=== PATIENT | female | born 1950 | race Caucasian/White ===

== ENCOUNTER → 2024-05-01 14:23 | Outpatient (REF) | payer OTHER, SELFPAY | LOC: WDC 14:23 | PROVIDERS: ATTENDING PHYSICIAN Nurse Practitioner | DX: Z12.31 Encounter for screening mammogram for malignant neoplasm of breast (principal) | CPT/HCPCS: 77063; 77067 ==

== ENCOUNTER → 2024-05-27 09:46 | Outpatient (REF) | payer OTHER, SELFPAY | LOC: WDC 09:46 | PROVIDERS: ATTENDING PHYSICIAN Nurse Practitioner | DX: R92.8 Other abnormal and inconclusive findings on diagnostic imaging of breast (principal) | CPT/HCPCS: 76642 ==

== ENCOUNTER → 2024-06-05 08:35 | Outpatient (REF) | payer OTHER, SELFPAY ==
--- NOTE | 2024-06-08 08:37 | OID.BR.INTR ---
OID Breast Navigator - Initial
- -
Did not meet patient at time of biopsy. Will follow up per protocol.
== END ==
LOC: WDC 08:35
PROVIDERS: ATTENDING PHYSICIAN Nurse Practitioner
DX: N63.23 Unspecified lump in the left breast, lower outer quadrant (principal)
CPT/HCPCS: 88305; 19083; A4648

== ENCOUNTER → 2024-07-03 13:32 | Outpatient (REF) | payer OTHER, SELFPAY | LOC: MRI 3T 13:32 | PROVIDERS: ATTENDING PHYSICIAN Surgery; FAMILY PHYSICIAN Nurse Practitioner | DX: C50.412 Malignant neoplasm of upper-outer quadrant of left female breast (principal) | CPT/HCPCS: 77049; A9585 ==

== ENCOUNTER → 2024-07-13 08:15 | Outpatient (REF) | payer OTHER, SELFPAY | LOC: WDC 08:15 | PROVIDERS: ATTENDING PHYSICIAN Surgery | DX: C50.412 Malignant neoplasm of upper-outer quadrant of left female breast (principal) | CPT/HCPCS: 19285; 38792; 76942; A4648; A9541 ==

== ENCOUNTER 2024-07-14 06:17 | Day surgery (SDC) | payer OTHER, SELFPAY ==
[2024-07-13 11:24] LABS: Hematocrit 46.1 % (37.0-47.0); Hemoglobin 15.1 g/dL (12.0-16.0); Mean Corp Hgb Conc. 32.8 g/dL (33.0-37.0); Mean Corpuscular Hgb 26.9 pg (27.0-31.0); Mean Corpuscular Volume 82.2 fL (81.0-99.0); Mean Platelet Volume 10.8 fL (7.4-10.4); Platelet Count 279 10^3/uL (130-400); Red Blood Cell Count 5.61 10^6/uL (4.20-5.40); Red Cell Dist. Width 15.3 % (11.5-14.5); White Blood Cell Count 16.8 10^3/uL (4.8-10.8)
[2024-07-13 13:45] LABS: ALT (SGPT) 32 U/L (0-35); AST (SGOT) 31 U/L (14-36); Albumin 4.4 g/dl (3.5-5.0); Alkaline Phosphatase 162 U/L (38-126); Blood Urea Nitrogen 13 mg/dl (7-17); Calcium 9.8 mg/dl (8.4-10.2); Carbon Dioxide 26 mmol/L (22-30); Chloride 105 mmol/L (98-107); Glucose 110 mg/dl (70-99); Potassium 4.3 mmol/L (3.5-5.1); Sodium 145 mmol/L (135-145); Total Protein 7.7 g/dl (6.3-8.2); eGFR > 60.00
[2024-07-13 14:02] LABS: Prealbumin (Transthyretin) 24.2 mg/dl (17.6-36.0)
--- NOTE | 2024-07-13 14:13 | PTCARENOTE ---
Abn Aftab DUARTE at Dr. Cleaning's office made aware.
[2024-07-13 14:15] LABS: Vitamin D, 25-OH*** 21.5 ng/mL (30-80)
[2024-07-13 14:18] VITALS: BMI 32.2
[2024-07-14 09:44] VITALS: BMI 32.2
[2024-07-14 09:56] VITALS: BMI 32.2
[2024-07-14 10:07] VITALS: BP 155/74
[2024-07-14] MEDS: LOVENOX 40 MG SC (10:34)
[2024-07-14] MEDS: NORMOSOL-R/PLASMALYTE-A 1000 IV (10:57)
[2024-07-14 13:10] VITALS: BP 136/66
[2024-07-14 13:15] VITALS: BP 138/66
[2024-07-14 13:30] VITALS: BP 128/63
--- NOTE | 2024-07-14 13:37 | W.IMMPOSTOP ---
Surgical Immed Post Op Note
-
Primary Surgeon: Hermila
Assisting Surgeon: None
Pre-op Diagnosis: Left breast ca
Post-op Diagnosis: Left breast ca
Procedure Performed: Left localized lumpectomy, sentinel lymph node mapping and biopsy
Anesthesia Type: TIVA
Specimen / Cultures: Left lumpectomy, margins, sentinel nodes
Estimated Blood Loss: 10cc
Complications: None
Operative Findings: Clip and reflector in specimen; neg nodes on frozen section
--- NOTE | 2024-07-14 13:38 | OR.RPT ---
Addendum entered and electronically signed by Liza Cleaning MD 07/14/24 13:46:
Procedure performed with curative intent: Yes
Tracer used in erick-adjuvant setting: N/A
Tracer used in non neoadjuvant setting: Radioactive
All significantly radioactive lymph nodes removed: Yes
All nodes at end of blue dye channels removed: N/A
All suspicious palpable nodes removed: Yes
Positive lymph nodes prior to neoadjuvant chemotherapy clipped prior to
chemotherapy: N/A
Original Note:
Operative Report
Operative Report
Date of surgery: 07/14/24
Surgeon: Hermila
Anes: TIVA
Pre-Op DX: Left breast ca
Post-Op DX: Left breast ca
The patient is a 74-year-old female with image detected early stage left breast carcinoma who presents for breast conservation surgery. On the day prior to the procedure she presented to the breast imaging center where a [employer] district scout executive reflector was
placed at the tumor site and technetium radiotracer was injected into the breast parenchyma.
On the day of surgery she presented to the same-day surgical unit where she was prepped and verified site and procedure. DVT and antibiotic prophylaxis were provided and the patient was transferred to the operating room. In the supine position
intravenous sedation was delivered. The left breast and axilla were prepped and draped in usual sterile fashion. All staff members performed an appropriate timeout procedure.
All tissues were anesthetized with 1% lidocaine plain. Attention was first turned to the axilla where a curvilinear incision was made inferior to the hairline overlying the area of highest external gamma count. Dissection was carried through
clavipectoral fascia and 3 sentinel node packets were encountered and excised. Feeding vessels to the nodes were controlled with 3-0 silk tie. After the removal of these nodes there was a greater than 4 fold reduction of background count. Frozen
section analysis was negative. Hemostasis was verified. Marcaine 0.5% plain was instilled and the wound was closed using simple interrupted 3-0 plain on deep intermediate and subcutaneous tissue and skin was closed with a running subcuticular 4-0
Monocryl.
Then attention was turned to the lumpectomy where a curvilinear incision in the skin lines was made sharply. This overlying the area of highest Di signal. Skin flaps were elevated and dissection was carried down to the location of the tumor
using the cautery. Wide resection was performed. Time out of body was noted and the specimen was oriented for the pathologist. Specimen radiography confirmed the presence of clip mass and reflector within it. Additional margins were harvested
for permanent analysis from the posterior, medial, superior, lateral, inferior, and anterior dimensions. These were oriented as well.
Hemostasis was maintained. Marcaine 0.5% plain was instilled. Hemoclips were placed in the resection cavity. This wound was closed in the same fashion as the axilla. Surgical glue and sterile compressive dressings were applied. All sponge
needle and instrument counts were correct and the patient was transferred to the recovery room in stable condition
([id number])
[2024-07-14 13:45] VITALS: BP 131/69
== END 2024-07-14 14:25 | disposition home or self-care (01) ==
LOC: SDS 06:17
PROVIDERS: ATTENDING PHYSICIAN Surgery; FAMILY PHYSICIAN Nurse Practitioner
DX: D05.82 Other specified type of carcinoma in situ of left breast (principal); C50.912 Malignant neoplasm of unspecified site of left female breast
CPT/HCPCS: 38525; 19301; 38900; 88305; 88307; 88332; 36415; 76098; 80053; 82306; 84134; 85027; 88331; 88342; 93005; A4648

== ENCOUNTER 2024-07-25 17:40 | Day surgery (SDC) | payer OTHER, SELFPAY ==
[2024-07-25] VITALS (16 sets, daily range): BP systolic 10–159; BP diastolic 61–83; BMI 33.2
[2024-07-25 11:41] LABS: % Basophils 0.3 % (0-2); % Eosinophils 0.7 % (0-6); % Immature Granulocytes 0.6 % (0-0.5); % Lymphocytes 12.6 % (20.5-51.1); % Neutrophils 78.8 % (42.2-75.2); Absolute Basophils 0.1 10^3/uL (0-0.2); Absolute Eosinophils 0.1 10^3/uL (0-0.7); Absolute Immature Granulocytes 0.1 10^3/uL (0-0.05); Absolute Lymphocytes 2.1 10^3/uL (1.2-3.4); Absolute Monocytes 1.2 10^3/uL (0.1-0.6); Absolute Neutrophils 12.9 10^3/uL (1.4-6.5); Hematocrit 36.5 % (37.0-47.0); Hemoglobin 12.4 g/dL (12.0-16.0); Mean Corpuscular Volume 82.4 fL (81.0-99.0); Mean Platelet Volume 8.9 fL (7.4-10.4); Nucleated Red Blood Cells % 0 %; Platelet Count 396 10^3/uL (130-400); Red Blood Cell Count 4.43 10^6/uL (4.20-5.40); Red Cell Dist. Width 16.1 % (11.5-14.5); White Blood Cell Count 16.4 10^3/uL (4.8-10.8)
[2024-07-25 11:58] LABS: ALT (SGPT) 25 U/L (0-35); AST (SGOT) 24 U/L (14-36); Albumin 3.9 g/dl (3.5-5.0); Alkaline Phosphatase 161 U/L (38-126); Blood Urea Nitrogen 14 mg/dl (7-17); Calcium 9.6 mg/dl (8.4-10.2); Carbon Dioxide 26 mmol/L (22-30); Chloride 107 mmol/L (98-107); Glucose 116 mg/dl (70-99); Potassium 3.9 mmol/L (3.5-5.1); Sodium 141 mmol/L (135-145); Total Bilirubin 1.8 mg/dl (0.2-1.3); Total Protein 6.8 g/dl (6.3-8.2); eGFR > 60.00
--- NOTE | 2024-07-25 12:25 | ED.GENMED ---
History of Present Illness
General
Chief Complaint: Post Operative Problem(s)
Source: patient
Exam Limitations: none
Time Seen by Provider: 07/25/24 12:25
Nursing documentation reviewed up to this point in time: agreed with
History of Present Illness
History of Present Illness:
pt is a 74 y/o F
had lumpectomy on 07/[address] hinojosa
here with concerns for post op bleeding within the soft tissue
causing pain/swelling around the L breast wih bruising leaking into the lower tissue of the abdomen and LUE
sent in by dr. hinojosa with concerns that she would need to go to the OR for evacuation of the hematoma
no fever/chills
no cp, sob
no thinners
Review of Systems
Review of Systems
Allergies reviewed?: Yes
All Other Systems: Not applicable
Phy Exam
Physical Exam
Physical Exam:
GENERAL: Alert , in no apparent distress
EYE: pupils equal and reactive
NECK: Supple
CARDIAC: Regular rate and rhythm
LUNGS: Clear breath sounds bilaterally, no acute respiratory distress, no wheezes/rales/rhonchi
breast: incision site covered but large hematoma, firm, tender
NEUROLOGICAL: Alert and oriented, no focal neuro deficits
SKIN: Warm and dry, large hematoma firm superior to the breast with extension of the bruising into the abdomen/flank, and LUE
PSYCH: Normal and appropriate interaction.
Course
Orders/Labs/Results
Orders:
Orders
07/25/24 11:28
Complete Blood Count/With Diff Urgent
Comprehensive Metabolic Panel Urgent
07/25/24 12:36
Type+Screen Urgent
07/25/24 12:45
Normosol (Mult Electrolytes) [Normosol-R/Plasmalyte-A] 500 ml IV 100 mls/hr
07/25/24 13:00
CeFAZolin 2 GRAM [Ancef] 2 grams in 10 ml IV PRE PROCEDURE
Abnormal Lab Results
07/25/24
11:28
WBC 16.4 H 10^3/uL
(4.8-10.8)
Hct 36.5 L %
(37.0-47.0)
RDW 16.1 H %
(11.5-14.5)
Abs Immat Gran (auto) 0.1 H 10^3/uL
(0-0.05)
Absolute Neuts (auto) 12.9 H 10^3/uL
(1.4-6.5)
Absolute Monos (auto) 1.2 H 10^3/uL
(0.1-0.6)
Immature Gran % 0.6 H %
(0-0.5)
Neutrophils % 78.8 H %
(42.2-75.2)
Lymphocytes % 12.6 L %
(20.5-51.1)
Glucose 116 H mg/dl
(70-99)
Total Bilirubin 1.8 H mg/dl
(0.2-1.3)
Alkaline Phosphatase 161 H U/L
(38-126)
07/25/24 11:28
07/25/24 11:28
Vital Signs
Initial and Last Documented VS:
Initial Vital Signs
Temp Pulse Resp BP Pulse Ox
36.9 C 95 16 154/76 97
07/25/24 11:20 07/25/24 11:20 07/25/24 11:20 07/25/24 11:20 07/25/24 11:20
Last Documented Vital Signs
Temp Pulse Resp BP Pulse Ox
36.9 C 95 16 154/76 97
07/25/24 11:20 07/25/24 11:20 07/25/24 11:20 07/25/24 11:20 07/25/24 11:20
MDM/Problems Addressed
Differential Diagnosis Includes:
post operative hematoma; bleeding, anemia
MDM/Problems Addressed:
74 y/o F
post op lumpectomy with hematoma/pain
sent in by breast surgeon who examined pt in the ER and wants to admit to OR for evacuation
hg stable
no signs sepsis
*Critical Care Note
Total Time (30-74mins, 75-104mins- exclusive of procedures): Not Applicable
ED Attending Note
-
Portions of this chart may have been created with voice recognition software.� Occasional wrong word or��sound alike� substitutions may have occurred due to the inherent limitations of voice recognition software.
Discharge Plan
Departure
Patient Disposition: Admit
Date of Disposition: 07/25/24
Time of Disposition: 12:33
Admit to: OR
Admit to doctor: micaela
Presentation/result/management discussed w/ accepting MD/DO: micaela
Patient with high blood pressure during this ER visit?: No
Condition: Fair
Covid-19: Not Applicable
Discharge Problem:
Postoperative hematoma
Prescriptions:
No Action
atorvastatin 10 mg Tablet
10 mg PO QPM
famotidine [Pepcid] 40 mg Tablet
40 mg PO DAILY
fexofenadine [Omayra] 180 mg Tablet
180 mg PO 1330
nifedipine 60 mg Tablet Extended Release 24hr
60 mg PO DAILY
epinephrine [Epi E-Z Pen] 0.3 mg/0.3 mL Auto-Injector
0.3 mg IM ONCE PRN (Reason: allergic reaction)
Rx Instructions:
have never taken it
fluticasone propionate [Flonase] 50 mcg/actuation [place],Suspension
1 spray INTRANASAL HS
solifenacin 10 mg Tablet
10 mg PO QPM
Women's Multivitamin 18 mg iron-400 mcg-500 mg Tablet
1 tab PO DAILY
Interventions
Interventions:
*Risk Screen - Suicide Last Done: 07/25/24 11:22
*Neglect/Abuse Screening Last Done: 07/25/24 11:22
ED-Skin Assessment Last Done: 07/25/24 13:05
Discharge Date and Time
Print Language: BAHAMIAN
--- NOTE | 2024-07-25 12:28 | HP.FOC2 ---
Focused History & Physical
Chief Complaint
HPI:
Chief Complaint: I'm bleeding
HPI / Indication for Planned Procedure: the patient is a 74 Y/O female who underwent breast conservation surgery for the treatment of early stage breast cancer and presents with a complaint of blood dripping from her two incisions. She denies any
trauma or taking any blood thinners. She denies SOB, dizziness, fever, sweats or chills.
Relevant Past Medical History: Hypertension
Relevant Social History: Negative
Relevant Family History: Negative
Relevant Past Surgical History: Positive for (recent left breast and axillary surgery)
Review of Systems
Review of Pertinent Systems: All Systems Negative Except for the Following Positives (bleeding from left axilla and breast)
Medication
See Medication form for detailed medications: Yes
Medication List (including Herbals & OTC):
atorvastatin 10 mg tablet 10 mg PO QPM 07/10/24
epinephrine 0.3 mg/0.3 mL injection, auto-injector 0.3 mg IM ONCE PRN allergic reaction 07/10/24
famotidine 40 mg tablet (Pepcid) 40 mg PO DAILY 07/10/24
fexofenadine 180 mg tablet 180 mg PO 1330 07/10/24
fluticasone propionate 50 mcg/actuation nasal spray,suspension 1 spray intranasal HS 07/10/24
phnnxdcx-myr-hjlb-FA-Ca carb-vit K 18 mg iron-400 mcg-500 mg tablet 1 tab PO DAILY 07/10/24
nifedipine 60 mg tablet,extended release 24 hr 60 mg PO DAILY 07/10/24
solifenacin 10 mg tablet 10 mg PO QPM 07/10/24
Medications Reviewed: Yes
Allergies and Reactions
Patient has Allergies: Yes
Noted Allergies and Reactions:
Allergy/AdvReac Type Severity Reaction Status Date / Time
aspirin Allergy Anaphylaxis Verified 07/14/24 09:50
pollen extracts Allergy seasonal Verified 07/14/24 09:50
allergies
poppyseed oil Allergy unk Verified 07/14/24 09:50
Pertinent Physical Exam
All Other Systems: Negative
Head/Neck: Normal
Lungs: Normal
Heart: Normal
Abdomen: Normal
Extremities: Other (bruising down left upper arm)
Neurological: Normal
Other: Hematoma left breast and axilla
Diagnosis / Assessment
Post op hematoma left breast and axilla
Plan / Procedure
The patient will return to the OR today for evacuation of hematomas of the left breast and axilla. Procedure, alternatives, risks (inherent and unexpected), morbidity and mortality discussed with patient who verbalizes she understands and fives
informed consent.
Anesthesia/Sedation to be done by Anesthesia Provider: Yes
--- NOTE | 2024-07-25 12:35 | W.SUR.PREOP ---
Pre-Operative Surgical Note
-
I have examined this patient prior to the performance of the scheduled procedure.
The patient's condition is unchanged from the time of the current History and
Physical and the patient is able to undergo the scheduled procedure.
--- NOTE | 2024-07-25 17:29 | W.IMMPOSTOP ---
Surgical Immed Post Op Note
-
Primary Surgeon: Hermila
Assisting Surgeon: None
Pre-op Diagnosis: Post-op hematoma left axilla
Post-op Diagnosis: Post-Op hematoma left axilla
Procedure Performed: Evacuation left axillary hematoma
Anesthesia Type: LMA general
Specimen / Cultures: None
Estimated Blood Loss: 20cc
Complications: None
Operative Findings: No active bleeding site
--- NOTE | 2024-07-25 17:30 | OR.RPT ---
Operative Report
Operative Report
Date of procedure: 07/25/24
Pre-Op DX: Post-Op hematoma left axilla
Post-Op DX: Post-Op hematoma left axilla
Procedure: Evacuation left axillary hematoma
Surgeon: Hermila
The patient is a 74-year-old female who had undergone left localized lumpectomy and sentinel lymph node mapping and biopsy approximately 10 days ago. She presented with a left axillary hematoma.
Patient was prepped for the OR and verified site and procedure. DVT and antibiotic prophylaxis were provided. She was brought to the operating room and in the supine position LMA general anesthesia was induced. Left breast and axilla were prepped
and draped in usual sterile fashion. Tissues were anesthetized with 1% lidocaine plain. Previous axillary incision was entered sharply with the blade and extended medially. Large hematoma was manually evacuated. Wound was irrigated with warm
water and no active bleeding was appreciated. The cautery was used to control any new bleeding sites. Careful inspection was made and again no signs of active bleeding were noticed.
Thrombin and Gelfoam were placed deep in the incision along the chest wall and Surgicel was also placed laterally along the latissimus. Marcaine 0.5% plain was instilled into all tissues and the wound was closed using simple interrupted 3-0 Vicryl
on deep tissues and intermediate parenchyma. Skin was closed using simple interrupted 4-0 Vicryl on subcutaneous tissue and running subcuticular 4 Monocryl. The wound had been closed over a 19 [place] Gianni drain which was secured to the skin using
3-0 nylon. Surgical glue and sterile compressive dressings were applied. All sponge needle and instrument counts were correct and the patient was transferred to the recovery room in stable condition.
([id number])
--- NOTE | 2024-07-25 18:45 | SUR.PHASEI ---
lengthy phone conversation with patient's and patient's niece explaining Dereck adame drain and care. Education materials printed for patient. , patient continues to be very tired, arouses to name and immediately falls back to sleep. no
pain _ 'I'm just tired'. patient cares for with parkinson's disease.
[2024-07-25] MEDS: NORMOSOL-R/PLASMALYTE-A 1000 IV (20:47)
--- NOTE | 2024-07-25 21:30 | PTCARENOTE ---
Pt. received from PACU via stretcher and able to walk to bathroom with steady gait and able to void, however pt. c/o nausea upon exertion. Pt. states tenderness to operative site, bruising present but tissue soft. Pt. oriented to room and unit
policies, questions addressed, bed locked and in lowest position, call light within reach.
--- NOTE | 2024-07-25 21:32 | SUR.PHASEI ---
patient somulent - needed to repeatedly call name at 2000 - 2.5hr after pacu arrival, O2 restarted for low sats when sleeping, encouraged coughing and deep breathing, patient without pain. Simply states - ' I am just so tired'. Keeps eyes closed
when talking. and niece updated x2 by phone , patient states she did not do well when discharged home after original surgery. with parkinson's. Cannot help her. Dr Cleaning TT and updated. Spoke with Dr Cleaning by phone and verbal
orders for admission received. Patient and family relieved to stay overnight. Continues to require O2 - discharge to [address] [place] [address], assisted patient to walk to with Armida MIN. Wave of nausea however tolerated walk well. Dr Cleaning and patient's
family advised of room number. , Dmitri, and niece - Renay updated on admission. Belongings with patient to room
[2024-07-25] MEDS: ZOFRAN 4 MG IV (21:47)
[2024-07-25] MEDS: ANCEF 5 IV (23:14)
[2024-07-26 00:24] VITALS: BP 165/58
[2024-07-26 03:09] VITALS: BP 142/63
[2024-07-26 07:16] VITALS: BP 148/61
[2024-07-26] MEDS: VESICARE 10 MG PO (08:21)
[2024-07-26] MEDS: ANCEF 5 IV (08:22)
[2024-07-26] MEDS: PROCARDIA XL (EXTENDED RELEASE) 60 MG PO (08:22)
--- NOTE | 2024-07-26 10:48 | W.PN.UPDATE ---
Update Note
Progress Note Update
The pt s POD #`1 S/P evacuation of left axillary hematoma after left sentinel lymph node biopsy and lumpectomy for the treatment of early stage left breast carcinoma. The patient is awake and alert in bed with no complaints. She did eat breakfast
and no longer requires oxygen supplementation. Her pain is well controlled. Plan is to D/C to home with [facility] for drain care. She will be seen in my office in 7-10 days.
--- NOTE | 2024-07-26 10:53 | W.DS.TRANS ---
DC Summary - Swim Coach
-
Discharge Instructions:
Discharge Diagnosis/Procedures hematoma after left breast surgery
Diet No restrictions
Activity No strenuous activity
Driving Restrictions No driving for 1 week
Bathing Restrictions OK to Shower
Other Services [facility]
Wound Care change dressing daily, strip, record drainage
and drain bulb as needed
Instructions:
Stand-Alone Forms:
Changes to Home Medications: No
Discharge Medications:
DC Medications w/original date entered in [facility]
atorvastatin 10 mg tablet 10 mg PO QPM 07/10/24
epinephrine 0.3 mg/0.3 mL injection, auto-injector 0.3 mg IM ONCE PRN allergic reaction 07/10/24
famotidine 40 mg tablet (Pepcid) 40 mg PO DAILY 07/10/24
fexofenadine 180 mg tablet 180 mg PO 1330 07/10/24
fluticasone propionate 50 mcg/actuation nasal spray,suspension 1 spray intranasal HS 07/10/24
tluhqdon-exr-hayi-FA-Ca carb-vit K 18 mg iron-400 mcg-500 mg tablet 1 tab PO DAILY 07/10/24
nifedipine 60 mg tablet,extended release 24 hr 60 mg PO DAILY 07/10/24
solifenacin 10 mg tablet 10 mg PO QPM 07/10/24
Home Medication Changes
Pending Results: No
Total time spent discharging patient (in min): 15
[2024-07-26] MEDS: NORMOSOL-R/PLASMALYTE-A IV (11:15)
[2024-07-26 11:25] VITALS: BP 125/58
--- NOTE | 2024-07-26 11:53 | CM ---
Initial assessment completed
Pt reports she lives with her in a 2 story home; 2 VADIM, 14 steps to bed/bath
Independent at baseline, uses single point cane when on a slope
DME - single point cane, rolling walker, wheel chair
SNF - denies past hx
HH - in past, unsure of agency
Has ride at d/c
PCP - Farzana Oliva
Pharm - [facility]
Discussed [facility] for drain care. Requesting [facility] - no preference
Referral sent in [facility] to [facility] for home care needs
Plan - [facility] with [facility]
== END 2024-07-26 12:45 | disposition home or self-care (01) ==
LOC: SDS 17:40
PROVIDERS: Emergency Medicine; ATTENDING PHYSICIAN Surgery; EMERGENCY PHYSICIAN Emergency Medicine
DX: M96.841 Postprocedural hematoma of a musculoskeletal structure following other procedure (principal); Z85.3 Personal history of malignant neoplasm of breast
CPT/HCPCS: 10140; 80053; 85025; 86850; 86900; 86901; 96374; 96375; 99284

== ENCOUNTER → 2025-03-31 12:55 | Outpatient (REF) | payer OTHER, SELFPAY | LOC: RAD 12:55 | PROVIDERS: ATTENDING PHYSICIAN Internal Medicine Hematology & Oncology; FAMILY PHYSICIAN Nurse Practitioner | DX: Z78.0 Asymptomatic menopausal state (principal) | CPT/HCPCS: 77080 ==